=== PATIENT | female | born 1965 | race Caucasian/White ===

== ENCOUNTER 2018-08-31 17:57 | Emergency (ER) | payer OTHER ==
[2018-08-31 18:17] VITALS: BP 153/116
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
== END 2018-08-31 19:04 | disposition home or self-care (01) ==
DX: S16.1XXA Strain of muscle, fascia and tendon at neck level, initial encounter (principal); R51 Headache; M25.519 Pain in unspecified shoulder; R10.9 Unspecified abdominal pain; Y04.8XXA Assault by other bodily force, initial encounter; Y92.129 Unspecified place in nursing home as the place of occurrence of the external cause; Y99.0 Civilian activity done for income or pay